=== PATIENT | male | born 2000 | race Two or more races ===

== ENCOUNTER → 2024-10-30 | Outpatient (CLI) | payer MEDICARE, MEDICAID, SELFPAY ==
[2024-10-30 08:31] LABS: Misc Send Out* See Sep Rpt
[2024-10-30 09:53] LABS: Alanine Aminotransferase 60 U/L (10-49); Albumin, Serum 4.3 gm/dL (3.5-5.0); Albumin/Globulin Ratio 1.3 (1.2-2.2); Alkaline Phosphatase 79 U/L (46-116); Anion Gap 8 (7-16); Aspartate Amino Transferase 19 U/L (0-34); BUN/Creatinine Ratio 16 Ratio (12-20); Bilirubin,Total 0.4 mg/dL (0.3-1.2); Blood Urea Nitrogen 13 mg/dL (9-23); Calcium 9.2 mg/dL (8.3-10.6); Calcium (Corrected) 9.2 mg/dL (8.5-10.1); Carbon Dioxide 26.6 mMol/L (20.0-31.0); Chloride 104 mMol/L (98-107); Creatinine (Component) 0.8 mg/dL (0.6-1.3); Globulin 3.2 gm/dL (2.3-3.5); Glucose 102 mg/dL (74-106); Osmolality,Calculated 277 (275-295); Sodium 139 mMol/L (136-145); Total Protein 7.5 gm/dL (5.7-8.2); eGFR > 60 See Note
[2024-10-30 10:13] LABS: Thyroid Stimulating Hormone 1.56 uIU/mL (0.55-4.78)
[2024-11-05 06:54] LABS: T3,Total* 122 ng/dL (76-181); TSI, Thyroid Stimulating Ig* 137 % baseline (<140)
== END | disposition home or self-care (01) ==
LOC: COPL 08:08
PROVIDERS: PCP Family Medicine; Referring Provider Internal Medicine; Visit Provider Internal Medicine
DX: E06.3 Autoimmune thyroiditis (principal); R73.02 Impaired glucose tolerance (oral)
CPT/HCPCS: 36415; 80053; 84436; 84443; 84445; 84480; 86337; 86341

== ENCOUNTER → 2025-02-12 | Outpatient (CLI) | payer MEDICARE, MEDICAID, SELFPAY ==
[2025-02-12 09:30] LABS: Glucose Estimated Average 120 mg/dL (80-131); Hemoglobin A1C 5.8 % Hgb (4.8-6.0)
[2025-02-12 09:38] LABS: Follicle Stimulating Hormone 4.65 mIU/mL (See Note)
[2025-02-12 09:50] LABS: Alanine Aminotransferase 130 U/L (10-49); Albumin, Serum 4.1 gm/dL (3.5-5.0); Albumin/Globulin Ratio 1.2 (1.2-2.2); Alkaline Phosphatase 77 U/L (46-116); Anion Gap 6 (7-16); Aspartate Amino Transferase 49 U/L (0-34); BUN/Creatinine Ratio 14 Ratio (12-20); Bilirubin,Total 0.3 mg/dL (0.3-1.2); Blood Urea Nitrogen 11 mg/dL (9-23); Calcium 8.9 mg/dL (8.3-10.6); Calcium (Corrected) 8.9 mg/dL (8.5-10.1); Carbon Dioxide 25.5 mMol/L (20.0-31.0); Cardiac Risk Estimate 5.4 RATIO (4.0-6.7); Chloride 109 mMol/L (98-107); Cholesterol 167 mg/dL (132-200); Creatinine (Component) 0.8 mg/dL (0.6-1.3); Globulin 3.3 gm/dL (2.3-3.5); Glucose 109 mg/dL (74-106); HDL Cholesterol 31 mg/dL (40-60); LDL Cholesterol,Calculated 98 mg/dL (0-130); Osmolality,Calculated 279 (275-295); Potassium 3.9 mMol/L (3.4-5.1); Sodium 140 mMol/L (136-145); Thyroid Stimulating Hormone 0.84 uIU/mL (0.55-4.78); Total Protein 7.4 gm/dL (5.7-8.2); Triglycerides 190 mg/dL (30-150); eGFR > 60 See Note
[2025-02-12 10:50] LABS: T4 (Thyroxine) 10.7 mcg/dL (4.5-10.9)
[2025-02-19 06:20] LABS: Luteinizing Hormone* 4.8 mIU/mL (1.5-9.3); Sex Hormone Binding Globulin* 10 nmol/L (10-50); T3,Total* 139 ng/dL (76-181); Testosterone, Free,Dialysis 59.8 pg/mL (35.0-155.0); Testosterone, Total, Dialysis 179 ng/dL (250-1100)
== END | disposition home or self-care (01) ==
LOC: COPL 08:16
PROVIDERS: PCP Family Medicine
DX: R73.02 Impaired glucose tolerance (oral) (principal); E03.1 Congenital hypothyroidism without goiter; E05.00 Thyrotoxicosis with diffuse goiter without thyrotoxic crisis or storm; E06.3 Autoimmune thyroiditis; R68.89 Other general symptoms and signs; R79.89 Other specified abnormal findings of blood chemistry; Q90.9 Down syndrome, unspecified
CPT/HCPCS: 36415; 80053; 80061; 83001; 83002; 83036; 84270; 84402; 84403; 84436; 84443; 84480

== ENCOUNTER → 2025-05-29 | Outpatient (CLI) | payer MEDICARE, MEDICAID, SELFPAY ==
[2025-05-29 09:55] LABS: Glucose Estimated Average 120 mg/dL (80-131); Hemoglobin A1C 5.8 % Hgb (4.8-6.0)
[2025-05-29 09:59] LABS: T4 (Thyroxine) 7.7 mcg/dL (4.5-10.9)
[2025-05-29 10:01] LABS: Alanine Aminotransferase 83 U/L (10-49); Albumin, Serum 4.3 gm/dL (3.5-5.0); Albumin/Globulin Ratio 1.3 (1.2-2.2); Alkaline Phosphatase 72 U/L (46-116); Anion Gap 8 (7-16); Aspartate Amino Transferase 27 U/L (0-34); BUN/Creatinine Ratio 13 Ratio (12-20); Bilirubin,Total 0.4 mg/dL (0.3-1.2); Blood Urea Nitrogen 12 mg/dL (9-23); Calcium 9.7 mg/dL (8.3-10.6); Calcium (Corrected) 9.7 mg/dL (8.5-10.1); Carbon Dioxide 27.9 mMol/L (20.0-31.0); Chloride 105 mMol/L (98-107); Creatinine (Component) 0.9 mg/dL (0.6-1.3); Globulin 3.3 gm/dL (2.3-3.5); Glucose 107 mg/dL (74-106); Osmolality,Calculated 280 (275-295); Potassium 4.0 mMol/L (3.4-5.1); Sodium 141 mMol/L (136-145); Thyroid Stimulating Hormone 0.93 uIU/mL (0.55-4.78); Total Protein 7.6 gm/dL (5.7-8.2); eGFR > 60 See Note
[2025-06-03 14:37] LABS: T3,Total* 122 ng/dL (76-181)
== END | disposition home or self-care (01) ==
LOC: COPL 08:26
PROVIDERS: PCP Family Medicine; Referring Provider Internal Medicine; Visit Provider Internal Medicine
DX: E03.1 Congenital hypothyroidism without goiter (principal); E06.3 Autoimmune thyroiditis; R73.02 Impaired glucose tolerance (oral)
CPT/HCPCS: 36415; 80053; 83036; 84436; 84443; 84480

== ENCOUNTER → 2025-08-29 | Outpatient (CLI) | payer MEDICARE, MEDICAID, SELFPAY ==
[2025-08-29 09:23] LABS: Glucose Estimated Average 123 mg/dL (80-131); Hemoglobin A1C 5.9 % Hgb (4.8-6.0)
[2025-08-29 09:32] LABS: Alanine Aminotransferase 131 U/L (10-49); Albumin, Serum 4.4 gm/dL (3.5-5.0); Albumin/Globulin Ratio 1.6 (1.2-2.2); Alkaline Phosphatase 74 U/L (46-116); Anion Gap 10 (7-16); Aspartate Amino Transferase 41 U/L (0-34); BUN/Creatinine Ratio 14 Ratio (12-20); Bilirubin,Total 0.3 mg/dL (0.3-1.2); Blood Urea Nitrogen 11 mg/dL (9-23); Calcium 8.9 mg/dL (8.3-10.6); Calcium (Corrected) 8.9 mg/dL (8.5-10.1); Carbon Dioxide 26.3 mMol/L (20.0-31.0); Chloride 105 mMol/L (98-107); Creatinine (Component) 0.8 mg/dL (0.6-1.3); Globulin 2.7 gm/dL (2.3-3.5); Glucose 97 mg/dL (74-106); Osmolality,Calculated 280 (275-295); Potassium 3.9 mMol/L (3.4-5.1); Sodium 141 mMol/L (136-145); Thyroid Stimulating Hormone 0.90 uIU/mL (0.55-4.78); Total Protein 7.1 gm/dL (5.7-8.2); eGFR > 60 See Note
[2025-08-29 09:33] LABS: T4 (Thyroxine) 9.4 mcg/dL (4.5-10.9)
[2025-09-04 07:41] LABS: T3,Total* 105 ng/dL (76-181); TSI, Thyroid Stimulating Ig* 142 % baseline (<140)
== END | disposition home or self-care (01) ==
LOC: COPL 08:29
PROVIDERS: PCP Family Medicine; Referring Provider Internal Medicine; Visit Provider Internal Medicine
DX: E03.1 Congenital hypothyroidism without goiter (principal); E05.00 Thyrotoxicosis with diffuse goiter without thyrotoxic crisis or storm; E06.3 Autoimmune thyroiditis; R73.02 Impaired glucose tolerance (oral); Q90.9 Down syndrome, unspecified
CPT/HCPCS: 36415; 80053; 83036; 84436; 84443; 84445; 84480